=== PATIENT | female | born 1965 | race African-American/Black ===

== ENCOUNTER 2019-11-28 19:50 | Inpatient (IN) | payer OTHER ==
[~2019-11-28] VITALS: Ht 175.3 cm; Wt 104.3 kg
[~2019-11-28 19:50] MED LIST: FERROUS SULFATE; HTN MED; MIDAZOLAM HCL 2 MG/2 ML VIAL IVP ONE
[2019-11-28] MEDS ORDERED: EPINEPHrine 2 MG in DEXTROSE 5%-WATER 248 ML IV PRN (20:00)
[2019-11-28] MEDS ORDERED: ATOR10TA84 PO (20:07)
[2019-11-28] MEDS ORDERED: LISI-660 PO (20:07)
[2019-11-28] MEDS ORDERED: EPINEPHrine 1:1,000 [1 MG/ML] AMP IM ONE (20:15)
[2019-11-28] MEDS ORDERED: FAMOTIDINE 10 MG/ML 2 ML VIAL IVP ONE (20:15)
[2019-11-28] MEDS ORDERED: MethylPREDNISolone SOD SUCC 125 MG/2 ML VIAL IVP ONE (20:15)
[2019-11-28] MEDS ORDERED: ONDANSETRON HCL 4 MG/2 ML VIAL ONE (20:25)
[2019-11-28] MEDS ORDERED: KETAMINE HCL 50 MG/ML 10 ML VIAL IVP ONE (20:45)
[2019-11-28] MEDS ORDERED: GLYCOPYRROLATE 0.2 MG/ML VIAL IVP ONE (20:45)
[2019-11-28] MEDS ORDERED: PROPOFOL 1% 20 ML VIAL IVP ONE (20:45)
[2019-11-28] MEDS ORDERED: LIDOCAINE 4% 50 ML SOLUTION NEB ONE (20:45)
[2019-11-28] MEDS ORDERED: ONDANSETRON HCL 4 MG/2 ML VIAL IVP ONE (20:45)
[2019-11-28] MEDS ORDERED: LIDOCAINE 2% VISCOUS 15 ML SOLUTION UDCUP ONE (20:53)
[2019-11-28] MEDS ORDERED: LIDOCAINE 1% 10 ML VIAL ONE (20:53)
[2019-11-28 21:30] LABS: BASOPHILS % (AUTO) 0.5 % (0.0-2.0); EOSINOPHILS % (AUTO) 1.3 % (1.0-6.0); HEMATOCRIT 48.2 % (36-46); HEMOGLOBIN 15.6 g/dL (12.0-16.0); LYMPHOCYTES # (AUTO) 2.5 K/uL (1.0-4.8); LYMPHOCYTES % (AUTO) 20.4 % (22.0-44.0); MEAN CORPUSCULAR HEMOGLOBIN 28.6 pg (26.0-34.0); MEAN CORPUSCULAR HGB CONC 32.4 G/dL (31.0-37.0); MEAN CORPUSCULAR VOLUME 88 fL (80-100); MONOCYTES # (AUTO) 0.8 K/uL (0.1-1.0); MONOCYTES % (AUTO) 6.3 % (2.0-9.0); NEUTROPHILS # (AUTO) 8.8 K/uL (1.8-7.7); NEUTROPHILS % (AUTO) 71.5 % (40.0-70.0); PLATELET COUNT (AUTO) 323 K/uL (150-450); RED BLOOD CELL COUNT(AUTO) 5.47 MIL/uL (4.00-5.20); RED CELL DISTRIBUTION WIDTH 14.8 % (11.5-14.5)
[2019-11-28 21:37] LABS: CALCIUM, TOTAL 8.9 mg/dL (8.8-10.5); CREATININE 1.19 mg/dL (0.60-1.30); POTASSIUM 3.8 mmol/L (3.5-5.1)
[2019-11-28 22:01] LABS: ALBUMIN 3.5 g/dL (3.4-5.0); BILIRUBIN,TOTAL 0.4 mg/dL (0.1-1.0); TOTAL PROTEIN, SERUM 7.2 g/dL (6.4-8.2)
[2019-11-28 22:06] LABS: PLATELET MORPHOLOGY COMMENT GIANT PLTS PRESENT
[2019-11-28] MEDS ORDERED: 0.9% SODIUM CHLORIDE 10 ML SYRINGE IVP PRN (22:30)
[2019-11-28] MEDS ORDERED: ONDANSETRON HCL 4 MG/2 ML VIAL IVP PRN (22:30)
[2019-11-28] MEDS ORDERED: ACETAMINOPHEN 325 MG TABLET PO PRN (22:30)
[2019-11-28 23:32] VITALS: BP 150/86
[2019-11-29] VITALS: BP 159/115
== END 2019-11-29 00:30 | disposition left against medical advice (07) | DRG 811 ==
LOC: EMS 19:51 → ICU 22:49
PROVIDERS: ADMIT Hospitalist; ATTEND Hospitalist
DX: T78.2XXA Anaphylactic shock, unspecified, initial encounter (principal); I10 Essential (primary) hypertension; T78.3XXA Angioneurotic edema, initial encounter
CPT/HCPCS: 85379; 86850; 86900; 86901; 87081; 93005; 99291; G0378; J0171; J2250; J2405; J2704; J2930; J3490; J7060